=== PATIENT | female | born 1955 | race Caucasian/White ===

== ENCOUNTER 2022-05-14 16:55 | Emergency (ER) | payer OTHER, BC ==
[2022-05-14 17:10] VITALS: BP 111/73; PULSE 85; RESP 18; TEMP 98; BMI 24.0
[2022-05-14] MEDS ORDERED: BEBTELOVIMAB (EUA) 175 MG/2 ML VIAL IVPUSH ONE (17:33)
== END 2022-05-14 20:07 | disposition home or self-care (01) ==
LOC: JERFT 16:55
DX: U07.1 COVID-19 (principal)
CPT/HCPCS: 99284-25; M0222; Q0222